=== PATIENT | female | born 2000 | race Two or more races ===

== ENCOUNTER 2024-08-08 00:30 | Emergency (ER) | payer MEDICAID, SELFPAY ==
[2024-08-08] VITALS (8 sets, daily range): BP systolic 93–101; BP diastolic 55–72; PULSE 76–120; RESP 17–18; TEMP 36.6–39.3; O2SAT 98–99; BMI 41.7
--- NOTE | 2024-08-08 00:52 | PD.EDRME ---
Rapid Medical Screening Exam RME Arrival date/time: 08/08/24 00:30 24-year-old female presents emergency department complaint of abdominal cramping. Patient reports currently on monthly. Chief Complaint: Abdominal Pain Time Seen by Provider: 08/08/24 00:48 Vital signs: Vital Signs Temperature 100.7 F H 08/08/24 00:36 Pulse Rate 120 H 08/08/24 00:36 Respiratory Rate 18 08/08/24 00:36 Blood Pressure 93/66 08/08/24 00:36 Pulse Oximetry (%) 98 08/08/24 00:36 Oxygen Delivery Method Room Air 08/08/24 00:36 Vital signs reviewed by provider: Yes
[2024-08-08 01:08] LABS: Basophils % (Auto) 0 % (0-2.5); Eosinophils % (Auto) 0 % (0-10); Hematocrit 35.8 % (36.0-46.0); Hemoglobin 11.2 g/dL (12.0-16.0); Immature Granulocytes % (Auto) 0 % (0-0); Immature Granulocytes Auto 0.09 Thou/mm3 (0.00-0.00); Lymphocytes # (Auto) 1.6 Thou/mm3 (1.0-4.8); Lymphocytes % (Auto) 8 % (10-50); Mean Corpuscular HGB Conc 31.3 g/dl (31.0-37.0); Mean Corpuscular Hemoglobin 24.5 pg (25.0-35.0); Mean Corpuscular Volume 78 fL (80-100); Monocytes # (Auto) 1.4 Thou/mm3 (0.0-0.8); Monocytes % (Auto) 7 % (0-12); Neutrophils # (Auto) 17.3 Thou/mm3 (1.8-7.7); Neutrophils % (Auto) 84 % (37-80); Nucleated Red Blood Cell % 0 /100 WBC (0); Platelet Count 323 Thou/mm3 (140-440); RDW Standard Deviation 46.4 fL (36.4-46.3); Red Blood Count 4.58 Miln/mm3 (4.00-5.20)
[2024-08-08 01:19] LABS: Strep A Rapid Negative (Negative)
[2024-08-08 01:21] LABS: White Blood Count 20.5 Thou/mm3 (3.6-11.0)
[2024-08-08 01:32] LABS: Alanine Aminotransferase 14 U/L (10-49); Albumin, Serum 4.6 gm/dL (3.5-5.0); Albumin/Globulin Ratio 1.7 (1.2-2.2); Alkaline Phosphatase 70 U/L (46-116); Anion Gap 9 (7-16); Aspartate Amino Transferase 14 U/L (0-34); BUN/Creatinine Ratio 14 Ratio (12-20); Bilirubin,Total 0.4 mg/dL (0.3-1.2); Blood Urea Nitrogen 10 mg/dL (9-23); Calcium 9.4 mg/dL (8.3-10.6); Calcium (Corrected) 9.4 mg/dL (8.5-10.1); Carbon Dioxide 23.4 mMol/L (20.0-31.0); Chloride 108 mMol/L (98-107); Creatinine (Component) 0.7 mg/dL (0.6-1.3); Estimated Creatinine Clearance 139.7 mL/min (>60); Globulin 2.7 gm/dL (2.3-3.5); Glucose 117 mg/dL (74-106); Lipase 35 U/L (12-53); Osmolality,Calculated 279 (275-295); Potassium 3.6 mMol/L (3.4-5.1); Sodium 140 mMol/L (136-145); Total Protein 7.3 gm/dL (5.7-8.2); eGFR > 60 See Note
[2024-08-08] MEDS: ACETAMINOPHEN 500 MG TABLET 1000 MG PO (01:32)
[2024-08-08 01:45] LABS: HCG,Qualitative Serum Negative
[2024-08-08 01:51] LABS: Lactate (Lactic Acid) 1.2 mMol/L (0.4-2.0)
[2024-08-08 01:51] LABS: Collection Type, Urine Clean Catch
[2024-08-08 01:57] LABS: Bilirubin,Urine Negative (Negative); Blood,Urine 3+ (Negative); Clarity,Urine Turbid (Clear/Hazy); Color,Urine Yellow (Lt Yel-Yel); Culture Indicated,Urine Yes; Glucose, Urine Negative (Negative); Ketones,Urine Trace (Negative); Leukocyte Esterase,Urine Positive (Negative); Nitrite,Urine Negative (Negative); Protein,Urine 1+ (Neg - Trace); RBC,Urine 2037 /hpf (0-3); Specific Gravity,Urine 1.037 (1.001-1.035); Squamous Epithelial Cell,Urine 7 /hpf (0-5); WBC,Urine 17 /hpf (0-5)
[2024-08-08 02:03] LABS: Amphetamine/Methamp Scrn,U Negative (Negative); Barbiturate Screen,Urine Negative (Negative); Benzodiazepines Screen,Urine Negative (Negative); Benzoylecgonine Screen, Ur Negative (Negative); Fentanyl Screen,Urine Negative (Negative); Opiate Screen,Urine Negative (Negative); THC Screen,Urine Negative (Negative)
[2024-08-08 02:19] LABS: Procalcitonin 0.05 ng/ml (0.0-0.49)
--- NOTE | 2024-08-08 02:43 | XR_ITS ---
Examination: AP chest single view Technique one AP portable upright chest single view Exam date and time: August 08, 2024 0315 hrs. Indications: High fever today. Findings: Normal heart size The lungs are clear. The osseous structures are intact Impression: No active disease
[2024-08-08] MEDS: cefTRIAXone 1,000 MG in SODIUM CHLORIDE 0.9% (P) 50 ML 100 MG IV (03:01)
[2024-08-08] MEDS: SODIUM CHLORIDE 0.9% 1000 ML 1,503 ML 1503 ML IV (03:03)
[2024-08-08 03:06] LABS: INR 1.1 (0.9-1.3); Partial Thromboplastin Time 30.2 Seconds (22.0-36.0); Prothrombin Time 11.9 Seconds (9.0-12.2)
[2024-08-08] MEDS: IBUPROFEN TAB 600 MG TABLET PO (03:09)
--- NOTE | 2024-08-08 03:11 | PD.EDABDPN ---
ED Abdominal Pain RME/HPI General Chief Complaint: Abdominal Pain Stated complaint: ABDOMINAL PAIN Time seen by provider: 08/08/24 00:48 Arrival date/time: 08/08/24 00:30 RME / HPI RME / HPI narrative: 08/08/24 00:30 24-year-old female presents emergency department complaint of abdominal cramping. Patient reports currently on monthly. -------- Dr. Paez?s Main ED Evaluation: 24yo female presents to the ED for multiple complaints. Patient reports having fatigue, a headache, sore throat, nausea, generalized body aches, cold sweating, and chills that started today. She reports associated lower back pain and abdominal cramping, noting she is menstruating. She denies any V/D, cough, dysuria, shortness of breath or any other associated symptoms. Patient denies any sick contacts. Patient states she is currently on antibiotics for Strep. Related Data Home Medications ?Medication ?Instructions ?Recorded ?Confirmed ferrous sulfate 325 mg (65 mg 325 mg PO QDAY 06/30/21 03/21/23 iron) tablet (FeroSul) folic acid 1 mg tablet 1 mg PO QDAY 06/30/21 03/21/23 vits no.130-ferrous fum 1 tab PO QDAY 06/30/21 03/21/23 27 mg iron-folic acid 800 mcg tablet ( Vitamin) dicyclomine 10 mg capsule 10 mg PO PRN PRN (Drug) Ingestion 03/21/23 03/21/23 Previous Rx's ?Medication ?Instructions ?Recorded acetaminophen 500 mg capsule 1,000 mg (2 x 500 mg) PO Q6H PRN 08/08/24 fever or pain 5 days #40 caps ibuprofen 600 mg tablet 600 mg PO Q6H PRN fever or pain 5 08/08/24 days #20 tabs Allergies Allergy/AdvReac Type Severity Reaction Status Date / Time hydrocodone (From [place]) Allergy Severe Hives Verified 03/07/24 10:20 Review of Systems Review of Systems Systems Reviewed: All systems reviewed, normal except as documented Past Medical History Past Medical History NEUROLOGIC: Negative Neurological Disorders CARDIAC: Positive Cardiac Disorders and Congenital Heart Disease; Negative Congestive Heart Failure RESPIRATORY: Negative Chronic Obstructive Pulmonary Disease (COPD) or Asthma GASTROINTESTINAL: Positive Gastrointestinal Disorders, Gall Bladder Disease and Obesity GENITOURINARY: Negative Genitourinary Disorders or Renal Disease REPRODUCTIVE: Positive Previous Pregnancies MUSCULOSKELETAL: Negative Musculoskeletal Disorders ENDOCRINE: Negative Endocrine Disorders, Diabetes Mellitus Type 1 or Diabetes Mellitus Type 2 HEMATOLOGIC: Negative Blood Disorders or Sickle Cell Disease Surgical History SURGICAL: Positive Cardiac Surgery, Open Heart Surgery, Valve Replacement, Vascular Surgery, Coronary Stent, Abdominal Surgery, Gastric Bypass Surgery and Section Social History SMOKING STATUS: Never smoker ED Exam Narrative Physical exam: GENERAL APPEARANCE: alert and oriented x 4, well-developed, well-nourished, no acute distress VITALS: All vitals were reviewed and the pulse ox is 99% on room air, which is normal according to my interpretation. HEENT: Normocephalic, atraumatic; pupils equal, round, reactive to light; EOMI; mucous membranes pink, moist; extensive posterior oropharyngeal injection withe extensive exudates, uvula is midline, no tongue elevation, normal voice NECK: Supple; anterior cervical adenopathy LUNGS: CTABL; no wheezes, no rales, no rhonchi, no stridor HEART: Regular rate, regular rhythm; normal S1, S2; no murmurs ABDOMEN: non distended; normal BS; soft, no tenderness, no guarding, no rebound; no masses, no organomegaly, no hernia BACK: no CVA tenderness EXTREMITIES: atraumatic; no edema NEUROLOGIC: awake; alert and oriented x4; cranial nerves II-XII grossly intact; no focal sensory or motor deficits PSYCHIATRIC: appropriate mood and affect SKIN: warm, dry, normal color; no rashes Course Course Course Narrative: 0223: Sepsis alert initiated. Orders made at this time are congruent with ED Adult Sepsis Order List. Re-evaluation is to be completed. 0303: NS IVF started. 0435: Sepsis reassessment performed consisting of lab review, vitals, physical exam including auscultation of heart, lungs, and visual evaluation of capillary refills, mucosal membranes and extremities. Patient states she feels significantly better. Patient is stable to be discharged home. Her fever has resolved. Quality Measures none Orders Category Date Time Status Bedside Influenza A&B Antigen Test NOW Care 08/08/24 00:51 Completed Weight Control Lecturer STAT Care 08/08/24 02:41 Active Continuous Pulse Oximetry STAT Care 08/08/24 02:41 Completed Insert IV NOW Care 08/08/24 02:41 Active Miscellaneous Nursing Order NOW Care 08/08/24 04:10 Active NPO STAT Care 08/08/24 02:41 Active Strict Intake and Output Routine Care 08/08/24 02:41 Ordered XR chest 1V portable Stat Exams 08/08/24 02:43 Taken Blood Culture (Lab) Stat Lab 08/08/24 02:55 Received CBC Stat Lab 08/08/24 00:55 Completed CMP [Comprehensive Metabolic Panel] Stat Lab 08/08/24 00:55 Completed Drug Screen,Urine Stat Lab 08/08/24 01:30 Completed HCG,Qualitative Serum Stat Lab 08/08/24 00:55 Completed LDH (Lactate Dehydrogenase) Stat Lab 08/08/24 02:55 Completed Lactic Acid [Lactate (Lactic Acid)] Stat Lab 08/08/24 01:46 Completed Lipase Stat Lab 08/08/24 00:55 Completed Magnesium Stat Lab 08/08/24 02:55 Completed Partial Thromboplastin Time Stat Lab 08/08/24 00:55 Completed Phosphorous Stat Lab 08/08/24 02:55 Completed Procalcitonin Stat Lab 08/08/24 01:46 Completed Prothrombin Time with INR Stat Lab 08/08/24 00:55 Completed Strep A Rapid Stat Lab 08/08/24 00:55 Completed Urinalysis, C/S if Indicated Stat Lab 08/08/24 01:30 Completed Urine Culture Stat Lab 08/08/24 01:30 Received Acetaminophen Tab [Tylenol ES Tab] Med 08/08/24 00:53 Discontinued 1,000 mg PO X1 ONE Dexamethasone Inj [Decadron Inj] Med 08/08/24 04:10 Discontinued 10 mg IVP X1 ONE Ibuprofen Tab [Motrin Tab] Med 08/08/24 03:04 Discontinued 600 mg PO X1 ONE Oseltamivir [Tamiflu] Med 08/08/24 04:32 Once 75 mg PO X1 ONE Sodium Chloride 0.9% 1000 ml [Ns] 1,503 ml Med 08/08/24 02:40 Discontinued IV 1,503 mls/hr cefTRIAXone [Rocephin] 1,000 mg Med 08/08/24 02:40 Discontinued Sodium Chloride 0.9% (P) [Ns 0.9% (P)] 50 ml IV X1 Vital Signs Vital signs: Vital Signs Temperature 100.7 F H 08/08/24 00:36 Pulse Rate 120 H 08/08/24 00:36 Respiratory Rate 18 08/08/24 00:36 Blood Pressure 93/66 08/08/24 00:36 Pulse Oximetry (%) 98 08/08/24 00:36 Oxygen Delivery Method Room Air 08/08/24 00:36 Abdominal Pain MDM MDM Narrative MDM Narrative:: Scribe Attestation: 08/08/24 - IJanette am scribing for and in the presence of Dr. Paez. Patient meets 4/4 Centor criteria. She is currently being treated for Strep pharyngitis with azithromax. Patient is stable to be discharged home. Patient data External records reviewed:: [facility] previous records (Per chart review, patient has no relevant previous ED visits.) Clinical information provided by:: patient Social determinants that could affect healthcare access:: none Patient has the following chronic illnesses:: none How is presenting disease/condition affected by chronic disease/condition?: no chronic disease Evaluation data The following diagnostics were reviewed and interpreted by me:: lab results and radiology exam(s) Lab and/or radiology exams considered but not ordered:: none Interpretation Summary: Bedside Influezna is positive, WBC count is elevated at 20.5, CMP is normal, Lactate is normal, Procalcitonin is normal, HCG is negative, UA is negative for UTI, UDS is negative, according to my interpretation. CXR shows normal cardiac silhouette, normal sharp diaphragmatic edge, no infiltrates, normal costophrenic angles, according to my interpretation. Medications / Prescriptions Medications or Prescriptions considered but not ordered:: none Medication administrations:: Medication Administration History Discontinued Medications Acetaminophen (Acetaminophen 500 Mg Tablet) 1,000 mg PO X1 ONE Stop: 08/08/24 00:54 Last Admin: 08/08/24 01:32 Dose: 1,000 mg Documented By: SAMANTHA Dexamethasone Sodium Phosphate (Dexamethasone Sod Phos Inj 4 Mg/Ml Vial) 10 mg IVP X1 ONE; Protocol Stop: 08/08/24 04:11 Last Admin: 08/08/24 04:25 Dose: 10 mg Documented By: EUN Sodium Chloride (Ns) 1,503 mls @ 1,503 mls/hr 30 ml/kg infuse over 60 min (1503 ml) IV .Q1H ONE Stop: 08/08/24 03:39 Last Infusion: 08/08/24 04:05 Dose: Infused Documented By: Admin: 08/08/24 03:03 Dose: 1,503 mls/hr Documented By: EUN Ceftriaxone Sodium 1,000 mg/ (Sodium Chloride) 50 mls @ 100 mls/hr IV X1 ONE Stop: 08/08/24 03:09 Last Infusion: 08/08/24 03:14 Dose: Infused Documented By: Admin: 08/08/24 03:01 Dose: 100 mls/hr Documented By: EUN Ibuprofen (Ibuprofen Tab 600 Mg Tablet) 600 mg PO X1 ONE Stop: 08/08/24 03:05 Last Admin: 08/08/24 03:09 Dose: 600 mg Documented By: EUN see above Consultations Consultation(s) initiated? (list below): No Diagnosis Differential diagnosis abdominal pain: other (Strep phayngitis, mononucleosis, Influenza, COVID, pneumonia) Most likely diagnosis given after review of the tests above:: see below Admission Indicated Admission indicated?: not indicated Admission Request Was there a request for admission?: No Disposition Plan Disposition Plan: Discharge Discharge Attestation Discharge Attestation: The patient and all family members were given an opportunity to ask questions and understood the discharge instructions. Discharge instructions specifically effects, indications for sooner follow up or return to the emergency department, and the expected course of current diagnosis. Patient condition: Stable Discharge Plan Plan Patient Disposition: HOME (Self Care) Disposition Comment: Stable for discharge Patient condition on transfer: Stable Prescriptions/Referrals Prescriptions/Med Rec: New acetaminophen 500 mg capsule 1,000 mg PO Q6H PRN (Reason: fever or pain) 5 Days Qty: 40 0RF ibuprofen 600 mg tablet 600 mg PO Q6H PRN (Reason: fever or pain) 5 Days Qty: 20 0RF No Action ferrous sulfate [FeroSul] 325 mg (65 mg iron) tablet 325 mg PO QDAY Patient Comments: take 1 tablet by mouth once daily folic acid 1 mg tablet 1 mg PO QDAY Patient Comments: take 1 tablet by mouth once daily Vitamin 27 mg iron- 800 mcg tablet 1 tab PO QDAY Patient Comments: take 1 tablet by mouth once daily dicyclomine 10 mg capsule 10 mg PO PRN PRN (Reason: (Drug) Ingestion) Patient Comments: TAKE 1 CAPSULE BY MOUTH 4 TIMES DAILY NEEDED FOR BLOATING ABDOMINAL PAIN Referrals: [facility] [Outside] - In 1 week Problem List Clinical Impression: Influenza A, Strep pharyngitis Patient/Caregiver Discharge Instructions Discharge Activity: activity as tolerated Education Materials: Self-Care for Sore Throats, ED Influenza (Adult), ED Pharyngitis, Strep (Presumed) Additional Instructions: Please return to the emergency department for any worsening or any further medical problems and we will help you. Otherwise you should follow-up with your primary care doctor or in the family [facility] care clinic within the next several days. You have several prescriptions waiting for you at the pharmacy. These are to take care of the symptoms of influenza and strep throat. Please take all medications as directed Print Language: Nepalese Stand Alone Forms: Kay Award Info., Work/School Release, Patient Portal Info Letter
[2024-08-08 03:39] LABS: LDH (Lactate Dehydrogenase) 202 U/L (120-246); Magnesium 1.7 mg/dL (1.6-2.6); Phosphorous 2.3 mg/dL (2.4-5.1)
[2024-08-08] MEDS: DEXAMETHASONE SOD PHOS INJ 4 MG/ML VIAL 10 MG IVP (04:25)
[2024-08-08] MEDS: OSELTAMIVIR 75 MG CAPSULE PO (04:37)
== END 2024-08-08 05:01 | disposition home or self-care (01) ==
LOC: SERX 04:23
PROVIDERS: Emergency Provider Emergency Medicine; PCP Physician Assistant
DX: J10.1 Influenza due to other identified influenza virus with other respiratory manifestations (principal); J02.0 Streptococcal pharyngitis
CPT/HCPCS: 36415; 71045; 80053; 80307; 81001; 83605; 83615; 83690; 83735; 84100; 84145; 84703; 85025; 85610; 85730; 87040; 87086; 87400; 87651; 96361; 96374; 99284; J0696; J1100; J7030; J7050; A9270

== ENCOUNTER 2024-08-14 19:51 | Emergency (ER) | payer MEDICAID, SELFPAY ==
[2024-08-14 19:51] VITALS: BMI 41.7
[2024-08-14 20:07] VITALS: BP 103/66; PULSE 102; RESP 18; TEMP 37.9; O2SAT 98
--- NOTE | 2024-08-14 20:19 | PD.EDRME ---
Rapid Medical Screening Exam RME Arrival date/time: 08/14/24 19:51 24-year-old female presents emergency department complaining of fatigue, headache, and nausea. Patient recently diagnosed with influenza. Chief Complaint: Flu Like Symptoms Time Seen by Provider: 08/14/24 20:16 Vital signs: Vital Signs Temperature 100.2 F 08/14/24 20:07 Pulse Rate 102 H 08/14/24 20:07 Respiratory Rate 18 08/14/24 20:07 Blood Pressure 103/66 08/14/24 20:07 Pulse Oximetry (%) 98 08/14/24 20:07 Oxygen Delivery Method Room Air 08/14/24 20:07 Vital signs reviewed by provider: Yes
--- NOTE | 2024-08-14 20:20 | EKG_ITS ---
[facility] Test Date: 2024-08-14 Pat Name: RENALDO HOFFMAN Department: Room: - Gender: Female Valet Manager: : [id number] Requested By: Leonidas Johnson ([facility]) Order Number: [id number] Reading MD: Leonidas Johnson ([facility]) Measurements Intervals [place] Rate: 99 P: 48 ID: [id number] QRS: 65 QRSD: 93 T: 54 QT: 330 QTc: 423 Interpretive Statements SINUS RHYTHM Compared to ECG 03/07/2024 10:34:57 Sinus bradycardia no longer present /store/S0/[id number].pdf
[2024-08-14 20:30] VITALS: TEMP 37.9
[2024-08-14] MEDS: ACETAMINOPHEN 500 MG TABLET 1000 MG PO (20:30)
[2024-08-14] MEDS: ONDANSETRON ODT 4 MG TABRAP PO (20:31)
--- NOTE | 2024-08-14 20:46 | EDNOTE_ITS ---
Upper Respiratory Inf. RME/HPI General Chief Complaint: Flu Like Symptoms Stated Complaint: FLU LIKE SYMPTOMS Time Seen by Provider: 08/14/24 20:16 Source: patient Arrival date/time: 08/14/24 19:51 Mode of arrival: ambulatory Limitations: no limitations RME / HPI RME / HPI Narrative: 08/14/24 19:51 24-year-old female presents emergency department complaining of fatigue, headache, and nausea. Patient recently diagnosed with influenza. Dr. Paez?s Main ED Evaluation: 24-year-old female accompanied by her significant other who was recently seen in the Emergency Department on 08/08/24, where she tested positive for Influenza A and was subsequently discharged on antibiotics. She reported significant improvement in her symptoms. However, today, she experienced a near-syncopal episode, which she vividly described as my soul leaving my body. Additionally, she reports the onset of throat and ear pain, accompanied by fever and neck discomfort. Despite these symptoms, she denies having a sore throat or cough. She denies any exposure to sick contacts. Related Data Home Medications ?Medication ?Instructions ?Recorded ?Confirmed ferrous sulfate 325 mg (65 mg 325 mg PO QDAY 06/30/21 03/21/23 iron) tablet (FeroSul) folic acid 1 mg tablet 1 mg PO QDAY 06/30/21 vits no.130-ferrous fum 1 tab PO QDAY 2 03/21/23 27 mg iron-folic acid 800 mcg tablet ( Vitamin) dicyclomine 10 mg capsule 10 mg PO PRN PRN (Drug) Radhasilvio garcia 03/21/23 03/21/23 Previous Rx's ?Medication ?Instructions ?Recorded ondansetron 4 mg disintegrating 4 mg PO Q6H PRN nausea and 08/08/24 tablet vomiting #14 tabs Allergies Allergy/AdvReac Type Severity Reaction Status Date / Time hydrocodone (From [place]) Allergy Severe Hives Verified 08/14/24 19:53 Review of Systems Review of Systems Systems Reviewed: All systems reviewed, normal except as documented Past Medical History Past Medical History NEUROLOGIC: Negative Neurological Disorders CARDIAC: Positive Cardiac Disorders and Congenital Heart Disease; Negative Congestive Heart Failure RESPIRATORY: Negative Chronic Obstructive Pulmonary Disease (COPD) or Asthma GASTROINTESTINAL: Positive Gastrointestinal Disorders, Gall Bladder Disease and Obesity GENITOURINARY: Negative Genitourinary Disorders or Renal Disease REPRODUCTIVE: Positive Previous Pregnancies MUSCULOSKELETAL: Negative Musculoskeletal Disorders ENDOCRINE: Negative Endocrine Disorders, Diabetes Mellitus Type 1 or Diabetes Mellitus Type 2 HEMATOLOGIC: Negative Blood Disorders or Sickle Cell Disease Surgical History SURGICAL: Positive Cardiac Surgery, Open Heart Surgery, Valve Replacement, Vascular Surgery, Coronary Stent, Abdominal Surgery, Gastric Bypass Surgery and Section Social History SMOKING STATUS: Never smoker ED Exam Narrative Physical exam: GENERAL APPEARANCE: alert and oriented x 4, well-developed, well-nourished, no acute distress VITALS: All vitals were reviewed and the pulse ox is 98% on room air, which is normal according to my interpretation. HEENT: Normocephalic, atraumatic; pupils equal, round, reactive to light; EOMI; mucous membranes pink, moist; oropharynx exhibits extensive posterior exudates and erythema. The uvula is midline with no palpable deviation. NECK: Supple LUNGS: CTABL; no wheezes, no rales, no rhonchi HEART: Regular rate, regular rhythm; normal S1, S2; no murmurs ABDOMEN: non distended; normal BS; soft, no tenderness, no guarding, no rebound; no masses, no organomegaly, no hernia BACK: no CVA tenderness EXTREMITIES: atraumatic; no edema NEUROLOGIC: awake; alert and oriented x4; cranial nerves II-XII grossly intact; no focal sensory or motor deficits PSYCHIATRIC: appropriate mood and affect SKIN: warm, dry, normal color; no rashes General Limitations: Present no limitations Course Course Course Narrative: CXR is ordered for determining etiology of fever. Quality Measures none Orders Category Date Time Status EKG (ED ONLY) *Do not use* NOW Care 08/14/24 20:20 Completed IV [Insert IV] NOW Care 08/14/24 21:02 Completed EKG (ED Only) Stat Exams 08/14/24 20:20 Draft XR chest 1V portable Stat Exams 08/14/24 20:46 Completed CBC Stat Lab 08/14/24 20:47 Completed CMP [Comprehensive Metabolic Panel] Stat Lab 08/14/24 20:47 Completed HCG Qualitative,Urine Stat Lab 08/14/24 22:25 Completed HCG,Qualitative Serum Stat Lab 08/14/24 20:47 Completed Lipase Stat Lab 08/14/24 20:47 Completed [place] Screen Stat Lab 08/14/24 20:47 Completed Urinalysis, C/S if Indicated Stat Lab 08/14/24 22:25 Completed Acetaminophen Tab [Tylenol ES Tab] Med 08/14/24 20:20 Discontinued 1,000 mg PO X1 ONE Dexamethasone Inj [Decadron Inj] Med 08/14/24 21:01 Discontinued 10 mg PO X1 ONE Ondansetron Odt [Zofran Odt] Med 08/14/24 20:20 Discontinued 4 mg PO X1 ONE Sodium Chloride 0.9% 1000 ml [Ns] 1,000 ml Med 08/14/24 21:02 Discontinued IV 999 mls/hr Reevaluation(s) Reevaluation #1: Patient feels significantly better. She is stable to be discharged home. Time: 23:08 Vital Signs Vital signs: Vital Signs Temperature 100.2 F 08/14/24 20:07 Pulse Rate 102 H 08/14/24 20:07 Respiratory Rate 18 08/14/24 20:07 Blood Pressure 103/66 08/14/24 20:07 Pulse Oximetry (%) 98 08/14/24 20:07 Oxygen Delivery Method Room Air 08/14/24 20:07 Upper Respiratory Infection MDM Narrative MDM Narrative:: Differential diagnoses include viral illness, streptococcal pharyngitis, influenza, COVID-19, and pneumonia. Scribe Attestation: Darlin Arnett am scribing for and in the presence of Dr. Paez. Provider Notation: Although this document has been carefully reviewed, there may still be some phonetic and other typographical errors. These errors are purely grammatical due to imperfections in the software program and should not be construed in any way to compromise the substance of the patient's medical care during this visit. Patient data External records reviewed:: [facility] previous records Clinical information provided by:: patient Social determinants that could affect healthcare access:: none Patient has the following chronic illnesses:: see PMH How is presenting disease/condition affected by chronic disease/condition?: uneffected by Evaluation data The following diagnostics were reviewed and interpreted by me:: lab results, radiology exam(s) and EKG tracing(s) Lab and/or radiology exams considered but not ordered:: na Interpretation Summary: EKG performed at 20:26 shows normal sinus rhythm at a rate of 99 bpm, normal axis, no ectopy, and no signs of acute ischemia, according to my interpretation. CXR shows normal cardiac silhouette, normal sharp diaphragmatic edge, no infiltrates, normal costophrenic angles, according to my interpretation. Medications / Prescriptions Medications or Prescriptions considered but not ordered:: na Medication administrations:: Medication Administration History Discontinued Medications Acetaminophen (Acetaminophen 500 Mg Tablet) 1,000 mg PO X1 ONE Stop: 08/14/24 20:21 Last Admin: 08/14/24 20:30 Dose: 1,000 mg Documented By: AKIRA Dexamethasone Sodium Phosphate (Dexamethasone Sod Phos Inj 10 Mg/Ml Vial) 10 mg PO X1 ONE Stop: 08/14/24 21:02 Last Admin: 08/14/24 21:33 Dose: 10 mg Documented By: AGUSTIN Sodium Chloride (Ns) 1,000 mls @ 999 mls/hr IV .Q1H1M ONE Stop: 08/14/24 22:02 Last Infusion: 08/14/24 22:19 Dose: Infused Documented By: Admin: 08/14/24 21:18 Dose: 999 mls/hr Documented By: AGUSTIN Ondansetron HCl (Ondansetron Odt 4 Mg Tabrap) 4 mg PO X1 ONE; Protocol Stop: 08/14/24 20:21 Last Admin: 08/14/24 20:31 Dose: 4 mg Documented By: AKIRA as above Consultations Consultation(s) initiated? (list below): No Diagnosis Upper Respiratory Differential Diagnosis: other (see narrative) Most likely diagnosis given after review of the tests above:: see clinical impression Admission Indicated Admission indicated?: not indicated Admission Request Was there a request for admission?: No Disposition Plan Disposition Plan: Discharge Discharge Attestation Discharge Attestation: The patient and all family members were given an opportunity to ask questions and understood the discharge instructions. Discharge instructions specifically effects, indications for sooner follow up or return to the emergency department, and the expected course of current diagnosis. Patient condition: Stable Discharge Plan Plan Patient Disposition: HOME (Self Care) Disposition Comment: Stable for discharge Patient condition on transfer: Stable Prescriptions/Referrals Prescriptions/Med Rec: No Action ferrous sulfate [FeroSul] 325 mg (65 mg iron) tablet 325 mg PO QDAY Patient Comments: take 1 tablet by mouth once daily folic acid 1 mg tablet 1 mg PO QDAY Patient Comments: take 1 tablet by mouth once daily Vitamin 27 mg iron- 800 mcg tablet 1 tab PO QDAY Patient Comments: take 1 tablet by mouth once daily dicyclomine 10 mg capsule 10 mg PO PRN PRN (Reason: (Drug) Ingestion) Patient Comments: TAKE 1 CAPSULE BY MOUTH 4 TIMES DAILY NEEDED FOR BLOATING ABDOMINAL PAIN ondansetron 4 mg tablet,disintegrating 4 mg PO Q6H PRN (Reason: nausea and vomiting) Qty: 14 0RF Referrals: Venita Peña PA-C [Primary Care Provider] - In 1 week Problem List Clinical Impression: Influenza A, Strep pharyngitis Patient/Caregiver Discharge Instructions Discharge Activity: activity as tolerated Education Materials: When You Have a Sore Throat, Self-Care for Sore Throats, The Flu (Influenza), ED Influenza (Adult), ED Pharyngitis, Strep (Presumed) Additional Instructions: Please return to the emergency department if you have any worsening or if you are not improving within the next 48 hours and we will help you. Otherwise you should follow-up with your primary care doctor within the next several days Print Language: Vietnamese Stand Alone Forms: Kay Award Info., Work/School Release, Patient Portal Info Letter
--- NOTE | 2024-08-14 20:46 | XR_ITS ---
Examination: AP chest single view Technique one AP portable upright chest single view Exam date and time: August 04, 2024 2134 hours Indications: Fatigue headache nausea, recent diagnosis influenza Findings: Normal heart size Lungs are clear. The osseous structures are intact Impression: No active disease
[2024-08-14 21:06] LABS: Basophils % (Auto) 0 % (0-2.5); Eosinophils % (Auto) 0 % (0-10); Hematocrit 34.4 % (36.0-46.0); Hemoglobin 10.8 g/dL (12.0-16.0); Immature Granulocytes % (Auto) 2 % (0-0); Immature Granulocytes Auto 0.36 Thou/mm3 (0.00-0.00); Lymphocytes # (Auto) 0.7 Thou/mm3 (1.0-4.8); Lymphocytes % (Auto) 3 % (10-50); Mean Corpuscular HGB Conc 31.4 g/dl (31.0-37.0); Mean Corpuscular Hemoglobin 24.4 pg (25.0-35.0); Mean Corpuscular Volume 78 fL (80-100); Monocytes # (Auto) 0.7 Thou/mm3 (0.0-0.8); Monocytes % (Auto) 3 % (0-12); Neutrophils # (Auto) 19.6 Thou/mm3 (1.8-7.7); Neutrophils % (Auto) 91 % (37-80); Nucleated Red Blood Cell % 0 /100 WBC (0); Platelet Count 386 Thou/mm3 (140-440); RDW Standard Deviation 46.3 fL (36.4-46.3); Red Blood Count 4.42 Miln/mm3 (4.00-5.20)
[2024-08-14 21:11] LABS: White Blood Count 21.5 Thou/mm3 (3.6-11.0)
[2024-08-14] MEDS: SODIUM CHLORIDE 0.9% 1000 ML 1,000 ML 999 ML IV (21:18)
[2024-08-14 21:25] LABS: Alanine Aminotransferase 14 U/L (10-49); Albumin, Serum 4.5 gm/dL (3.5-5.0); Albumin/Globulin Ratio 1.6 (1.2-2.2); Alkaline Phosphatase 74 U/L (46-116); Anion Gap 8 (7-16); Aspartate Amino Transferase 13 U/L (0-34); BUN/Creatinine Ratio 14 Ratio (12-20); Bilirubin,Total 0.4 mg/dL (0.3-1.2); Blood Urea Nitrogen 7 mg/dL (9-23); Calcium 9.5 mg/dL (8.3-10.6); Calcium (Corrected) 9.5 mg/dL (8.5-10.1); Carbon Dioxide 23.8 mMol/L (20.0-31.0); Chloride 107 mMol/L (98-107); Creatinine (Component) 0.5 mg/dL (0.6-1.3); Estimated Creatinine Clearance 195.6 mL/min (>60); Globulin 2.9 gm/dL (2.3-3.5); Glucose 102 mg/dL (74-106); Lipase 26 U/L (12-53); Osmolality,Calculated 275 (275-295); Potassium 3.9 mMol/L (3.4-5.1); Sodium 139 mMol/L (136-145); Total Protein 7.4 gm/dL (5.7-8.2); eGFR > 60 See Note
[2024-08-14 21:26] LABS: HCG,Qualitative Serum Negative
[2024-08-14] MEDS: DEXAMETHASONE SOD PHOS INJ 10 MG/ML VIAL PO (21:33)
[2024-08-14 22:45] LABS: Collection Type, Urine Clean Catch
[2024-08-14 22:50] LABS: Bilirubin,Urine Negative (Negative); Blood,Urine Negative (Negative); Clarity,Urine Clear (Clear/Hazy); Color,Urine Colorless (Lt Yel-Yel); Culture Indicated,Urine Not Indicated; Glucose, Urine Negative (Negative); Ketones,Urine 1+ (Negative); Leukocyte Esterase,Urine Negative (Negative); Nitrite,Urine Negative (Negative); PH,Urine 6.5 (5.0-7.0); Protein,Urine Negative (Neg - Trace); RBC,Urine 1 /hpf (0-3); Specific Gravity,Urine 1.008 (1.001-1.035); Squamous Epithelial Cell,Urine < 1 /hpf (0-5); Urobilinogen,Urine Negative mg/dL (0.0-1.0); WBC,Urine < 1 /hpf (0-5)
[2024-08-14 22:52] LABS: HCG Qualitative,Urine Negative
[2024-08-14 22:55] LABS: Mono Screen Negative (Negative)
[2024-08-14 23:07] VITALS: BP 128/74; PULSE 94; RESP 18; TEMP 37.1; O2SAT 100
== END 2024-08-14 23:23 | disposition home or self-care (01) ==
PROVIDERS: Emergency Provider Emergency Medicine; PCP Physician Assistant
DX: J10.1 Influenza due to other identified influenza virus with other respiratory manifestations (principal); J02.0 Streptococcal pharyngitis; Q24.9 Congenital malformation of heart, unspecified
CPT/HCPCS: 36415; 71045; 80053; 81001; 81025; 83690; 84703; 85025; 86308; 93005; 96360; 99284; J1100; J7030; Q0162; A9270

== ENCOUNTER 2025-01-09 22:49 | Emergency (ER) | payer MEDICAID, SELFPAY ==
[2025-01-09 22:50] VITALS: BMI 42.0
[2025-01-09 23:29] VITALS: BP 110/74; PULSE 93; RESP 18; TEMP 36.6; O2SAT 98
[2025-01-10] MEDS: DEXAMETHASONE SOD PHOS INJ 10 MG/ML VIAL PO (00:14)
[2025-01-10 00:21] VITALS: RESP 18
--- NOTE | 2025-01-10 04:26 | PD.EDURI ---
Upper Respiratory Inf. RME/HPI General Chief Complaint: Dental/Oral/Throat Stated Complaint: SORE THROAT Time Seen by Provider: 01/10/25 00:07 Arrival date/time: 01/09/25 22:49 24F with no significant PMH presents to ED with several days of sore throat. Patient denies cough. Patient is already on Augmentin for presumed strep throat. Limitations: no limitations Related Data Home Medications ?Medication ?Instructions ?Recorded ?Confirmed ferrous sulfate 325 mg (65 mg 325 mg PO QDAY 06/30/21 03/21/23 iron) tablet (FeroSul) folic acid 1 mg tablet 1 mg PO QDAY 06/30/21 03/21/23 vits no.130-ferrous fum 1 tab PO QDAY 06/30/21 03/21/23 27 mg iron-folic acid 800 mcg tablet ( Vitamin) dicyclomine 10 mg capsule 10 mg PO PRN PRN (Drug) Ingestion 03/21/23 03/21/23 Previous Rx's ?Medication ?Instructions ?Recorded ondansetron 4 mg disintegrating 4 mg PO Q6H PRN nausea and 08/08/24 tablet vomiting #14 tabs Allergies Allergy/AdvReac Type Severity Reaction Status Date / Time hydrocodone (From [place]) Allergy Severe Hives Verified 08/14/24 19:53 Review of Systems Review of Systems Systems Reviewed: All systems reviewed, normal except as documented Constitutional Constitutional: Reports system reviewed and no additional complaints, except as documented, Denies fever(s) and Denies headache(s) ENT Ears, Nose, Mouth, and Throat: Reports as per HPI, Denies disequilibrium, Denies headache(s) and Reports sore throat Cardiovascular Cardiovascular: Reports system reviewed and no additional complaints, except as documented, Denies chest pain and Denies dyspnea Respiratory Respiratory: Reports system reviewed and no additional complaints, except as documented, Denies cough and Denies dyspnea Gastrointestinal Gastrointestinal: Reports system reviewed and no additional complaints, except as documented, Denies abdominal pain, Denies nausea and Denies vomiting Neurologic Neurologic: Reports system reviewed and no additional complaints, except as documented, Denies confusion, Denies disequilibrium and Denies headache(s) Psychiatric Psychiatric: Denies confusion Past Medical History Past Medical History NEUROLOGIC: Negative Neurological Disorders CARDIAC: Positive Cardiac Disorders and Congenital Heart Disease; Negative Congestive Heart Failure RESPIRATORY: Negative Chronic Obstructive Pulmonary Disease (COPD) or Asthma GASTROINTESTINAL: Positive Gastrointestinal Disorders, Gall Bladder Disease and Obesity GENITOURINARY: Negative Genitourinary Disorders or Renal Disease REPRODUCTIVE: Positive Previous Pregnancies MUSCULOSKELETAL: Negative Musculoskeletal Disorders ENDOCRINE: Negative Endocrine Disorders, Diabetes Mellitus Type 1 or Diabetes Mellitus Type 2 HEMATOLOGIC: Negative Blood Disorders or Sickle Cell Disease Surgical History SURGICAL: Positive Cardiac Surgery, Open Heart Surgery, Valve Replacement, Vascular Surgery, Coronary Stent, Abdominal Surgery, Gastric Bypass Surgery and Section Social History SMOKING STATUS: Never smoker ED Exam General Limitations: Present no limitations General appearance: Present alert and in no apparent distress Head Head exam: Present atraumatic Eye Eye exam: Present normal appearance, PERRL and EOMI ENT ENT exam: Present mucous membranes moist Expanded ENT Exam Throat exam: Present tonsillar erythema and tonsillomegaly; Absent tonsillar exudate, R peritonsillar mass, L peritonsillar mass or muffled voice Neck Neck exam: Present normal inspection, full ROM and trachea midline Chest Chest inspection: Present normal inspection and symmetric chest wall rise Respiratory Respiratory exam: Present normal lung sounds bilaterally Cardiovascular Cardiovascular exam: Present regular rate, normal rhythm and normal heart sounds Abdominal Exam Abdominal exam: Present soft and normal bowel sounds Extremities Exam Extremities exam: Present normal inspection and full ROM Back Exam Back exam: Present normal inspection and full ROM Neurological Exam Neurological exam: Present alert, oriented X3 and CN II-XII intact Psychiatric Psychiatric exam: Present normal affect and normal mood Skin Skin exam: Present warm, dry, intact and normal color Course Quality Measures none Orders Category Date Time Status Dexamethasone Inj [Decadron Inj] Med 01/10/25 00:08 Discontinued 10 mg PO X1 ONE Vital Signs Vital signs: Vital Signs Temperature 98 F 01/09/25 23:29 Pulse Rate 93 01/09/25 23:29 Respiratory Rate 18 01/09/25 23:29 Blood Pressure 110/74 01/09/25 23:29 Pulse Oximetry (%) 98 01/09/25 23:29 Oxygen Delivery Method Room Air 01/09/25 23:29 O2 at 98% on RA and WNLs Upper Respiratory Infection MDM Narrative MDM Narrative:: 24F with no significant PMH presents to ED with several days of sore throat. Patient denies cough. Patient is already on Augmentin for presumed strep throat. Physical exam reveals red and swollen oropharynx. Clear lungs and normal WOB. Patient is afebrile, calm, and alert. Meds and counselor supervisor given. Patient data External records reviewed:: [facility] previous records Clinical information provided by:: patient Social determinants that could affect healthcare access:: none Patient has the following chronic illnesses:: none How is presenting disease/condition affected by chronic disease/condition?: no chronic disease Evaluation data The following diagnostics were reviewed and interpreted by me:: other (specify) (none) Lab and/or radiology exams considered but not ordered:: not ordered Interpretation Summary: n/a Medications / Prescriptions Medications or Prescriptions considered but not ordered:: ordered Medication administrations:: Medication Administration History Discontinued Medications Dexamethasone Sodium Phosphate (Dexamethasone Sod Phos Inj 10 Mg/Ml Vial) 10 mg PO X1 ONE Stop: 01/10/25 00:09 Last Admin: 01/10/25 00:14 Dose: 10 mg Documented By: CVL above Consultations Consultation(s) initiated? (list below): No Diagnosis Upper Respiratory Differential Diagnosis: upper respiratory infection, croup, otitis media, sinusitis, viral infection, bronchitis, influenza and pharyngitis Most likely diagnosis given after review of the tests above:: URI Admission Indicated Admission indicated?: not indicated Admission Request Was there a request for admission?: No Disposition Plan Disposition Plan: Discharge Discharge Attestation Discharge Attestation: The patient and all family members were given an opportunity to ask questions and understood the discharge instructions. Discharge instructions specifically effects, indications for sooner follow up or return to the emergency department, and the expected course of current diagnosis. Patient condition: Stable Discharge Plan Plan Patient Disposition: HOME (Self Care) Discharge Disposition comment: Stable Prescriptions/Referrals Prescriptions/Med Rec: No Action ferrous sulfate [FeroSul] 325 mg (65 mg iron) tablet 325 mg PO QDAY Patient Comments: take 1 tablet by mouth once daily folic acid 1 mg tablet 1 mg PO QDAY Patient Comments: take 1 tablet by mouth once daily Vitamin 27 mg iron- 800 mcg tablet 1 tab PO QDAY Patient Comments: take 1 tablet by mouth once daily dicyclomine 10 mg capsule 10 mg PO PRN PRN (Reason: (Drug) Ingestion) Patient Comments: TAKE 1 CAPSULE BY MOUTH 4 TIMES DAILY NEEDED FOR BLOATING ABDOMINAL PAIN ondansetron 4 mg tablet,disintegrating 4 mg PO Q6H PRN (Reason: nausea and vomiting) Qty: 14 0RF Problem List Clinical Impression: URI (upper respiratory infection) Patient/Caregiver Discharge Instructions Education Materials: ED URI, Viral, No Abx (Adult) Additional Instructions: Please follow-up with PCP within 24-48 hours and return immediately if symptoms worsen. Ibuprofen/Tylenol can be used simultaneously for greater fever/pain control. Benadryl is good for cough, congestion, and sleep. Finish ABX. Print Language: Burundian Stand Alone Forms: Work/School Release, Patient Portal Info Letter PA/CHAYA Supervising Physician PA/CHYAA Supervising Physician: Dr. Shepherd
== END 2025-01-10 00:21 | disposition home or self-care (01) ==
LOC: SERX 01-10 00:29
PROVIDERS: Emergency Provider Emergency Medicine
DX: J06.9 Acute upper respiratory infection, unspecified (principal)
CPT/HCPCS: 99283; J1100

== ENCOUNTER 2025-03-23 23:00 | Emergency (ER) | payer MEDICAID, SELFPAY ==
[2025-03-23 23:02] VITALS: BMI 22.8
[2025-03-23 23:24] VITALS: BP 128/68; PULSE 70; RESP 18; TEMP 36.8; O2SAT 99
--- NOTE | 2025-03-23 23:28 | PD.EDWOUND ---
ED Wound/Laceration-RME/HPI General Chief Complaint: Wound/Laceration Stated Complaint: SMALL LAC TO L INDEX RINGER Time Seen by Provider: 03/23/25 23:26 Arrival date/time: 03/23/25 23:00 24F with no significant PMH presents to ED with L index finger lac after she accidentally cut herself. Patient has had a tetanus shot in the past 5 years. Limitations: no limitations Related Data Home Medications ?Medication ?Instructions ?Recorded ?Confirmed ferrous sulfate 325 mg (65 mg 325 mg PO QDAY 06/30/21 03/21/23 iron) tablet (FeroSul) folic acid 1 mg tablet 1 mg PO QDAY 06/30/21 03/21/23 vits no.130-ferrous fum 1 tab PO QDAY 06/30/21 03/21/23 27 mg iron-folic acid 800 mcg tablet ( Vitamin) dicyclomine 10 mg capsule 10 mg PO PRN PRN (Drug) Ingestion 03/21/23 03/21/23 Previous Rx's ?Medication ?Instructions ?Recorded ondansetron 4 mg disintegrating 4 mg PO Q6H PRN nausea and 08/08/24 tablet vomiting #14 tabs Allergies Allergy/AdvReac Type Severity Reaction Status Date / Time hydrocodone (From [place]) Allergy Severe Hives Verified 03/23/25 23:06 Review of Systems Review of Systems Systems Reviewed: All systems reviewed, normal except as documented Integumentary/Breasts Skin/Breast: Reports as per HPI and Reports skin pain Past Medical History Past Medical History NEUROLOGIC: Negative Neurological Disorders CARDIAC: Positive Cardiac Disorders and Congenital Heart Disease; Negative Congestive Heart Failure RESPIRATORY: Negative Chronic Obstructive Pulmonary Disease (COPD) or Asthma GASTROINTESTINAL: Positive Gastrointestinal Disorders, Gall Bladder Disease and Obesity GENITOURINARY: Negative Genitourinary Disorders or Renal Disease REPRODUCTIVE: Positive Previous Pregnancies MUSCULOSKELETAL: Negative Musculoskeletal Disorders ENDOCRINE: Negative Endocrine Disorders, Diabetes Mellitus Type 1 or Diabetes Mellitus Type 2 HEMATOLOGIC: Negative Blood Disorders or Sickle Cell Disease Surgical History SURGICAL: Positive Cardiac Surgery, Open Heart Surgery, Valve Replacement, Vascular Surgery, Coronary Stent, Abdominal Surgery, Gastric Bypass Surgery and Section Social History SMOKING STATUS: Never smoker ED Exam General Limitations: Present no limitations General appearance: Present alert and in no apparent distress Head Head exam: Present atraumatic Neck Neck exam: Present normal inspection, full ROM and trachea midline Chest Chest inspection: Present normal inspection and symmetric chest wall rise Extremities Exam Extremities exam: Present full ROM Expanded Upper Extremity Exam Hand exam: Present full ROM and laceration (1 cm L index finger) Neurological Exam Neurological exam: Present alert and oriented X3 Psychiatric Psychiatric exam: Present normal affect and normal mood Skin Skin exam: Present warm, dry, intact and normal color Course Quality Measures none Orders Category Date Time Status Set Up Suture Tray STAT Care 03/23/25 23:27 Active Wound Care NOW Care 03/23/25 23:27 Active Vital Signs Vital signs: Vital Signs Temperature 98.2 F 03/23/25 23:24 Pulse Rate 70 03/23/25 23:24 Respiratory Rate 18 03/23/25 23:24 Blood Pressure 128/68 03/23/25 23:24 Pulse Oximetry (%) 99 03/23/25 23:24 Oxygen Delivery Method Room Air 03/23/25 23:24 O2 at 99% on RA and WNLs Wound / Laceration MDM Narrative MDM Narrative:: 24F with no significant PMH presents to ED with L index finger lac after she accidentally cut herself. Patient has had a tetanus shot in the past 5 years. Physical exam reveals 1 cm lac on L index finger. ROM intact. Patient is afebrile, calm, and alert. Wound cleaned/closed with 5 stitches. Given careers counsellor to have them removed in about 10-14 days. Patient data External records reviewed:: [facility] previous records Clinical information provided by:: patient Social determinants that could affect healthcare access:: none Patient has the following chronic illnesses:: none How is presenting disease/condition affected by chronic disease/condition?: no chronic disease Evaluation data The following diagnostics were reviewed and interpreted by me:: other (specify) (none) Lab and/or radiology exams considered but not ordered:: not ordered Interpretation Summary: n/a Medications / Prescriptions Medications or Prescriptions considered but not ordered:: not ordered Medication administrations:: n/a Consultations Consultation(s) initiated? (list below): No Diagnosis Wound Differential Diagnosis: laceration, abrasion and avulsion of skin Most likely diagnosis given after review of the tests above:: laceration Admission Indicated Admission indicated?: not indicated Admission Request Was there a request for admission?: No Disposition Plan Disposition Plan: Discharge Discharge Attestation Discharge Attestation: The patient and all family members were given an opportunity to ask questions and understood the discharge instructions. Discharge instructions specifically effects, indications for sooner follow up or return to the emergency department, and the expected course of current diagnosis. Patient condition: Stable Discharge Plan Plan Patient Disposition: HOME (Self Care) Discharge Disposition comment: Stable Prescriptions/Referrals Prescriptions/Med Rec: No Action ferrous sulfate [FeroSul] 325 mg (65 mg iron) tablet 325 mg PO QDAY Patient Comments: take 1 tablet by mouth once daily folic acid 1 mg tablet 1 mg PO QDAY Patient Comments: take 1 tablet by mouth once daily Vitamin 27 mg iron- 800 mcg tablet 1 tab PO QDAY Patient Comments: take 1 tablet by mouth once daily dicyclomine 10 mg capsule 10 mg PO PRN PRN (Reason: (Drug) Ingestion) Patient Comments: TAKE 1 CAPSULE BY MOUTH 4 TIMES DAILY NEEDED FOR BLOATING ABDOMINAL PAIN ondansetron 4 mg tablet,disintegrating 4 mg PO Q6H PRN (Reason: nausea and vomiting) Qty: 14 0RF Problem List Clinical Impression: Laceration Patient/Caregiver Discharge Instructions Education Materials: ED Laceration, Hand: All Closures Additional Instructions: Please follow-up with PCP within 24-48 hours and return immediately if symptoms worsen. Have stitches removed in about 10-14 days. Print Language: Estonian Stand Alone Forms: Patient Portal Info Letter JUDITH/CHAYA Supervising Physician JUDITH/CHAYA Supervising Physician: Dr. Reyes
== END 2025-03-24 00:11 | disposition home or self-care (01) ==
LOC: SERX 03-24 00:09
PROVIDERS: Emergency Provider Emergency Medicine; PCP Physician Assistant
DX: S61.211A Laceration without foreign body of left index finger without damage to nail, initial encounter (principal); W45.8XXA Other foreign body or object entering through skin, initial encounter
CPT/HCPCS: 12001; 99284

== ENCOUNTER 2025-05-07 19:10 | Emergency (ER) | payer MEDICAID, SELFPAY ==
[2025-05-07 19:12] VITALS: BMI 40.8
--- NOTE | 2025-05-07 21:28 | PC.NURSE ---
PATIENT ELOPED THE ER PER REGISTERED DUE TO NOT WANTING TO WAIT LONGER. PROVIDER NOTIFIED.
== END 2025-05-07 21:30 | disposition left against medical advice (07) ==
PROVIDERS: Emergency Provider Emergency Medicine
DX: Z53.21 Procedure and treatment not carried out due to patient leaving prior to being seen by health care provider (principal)
CPT/HCPCS: 99281

== ENCOUNTER 2025-05-08 09:47 | Emergency (ER) | payer MEDICAID, SELFPAY ==
--- NOTE | 2025-05-08 09:54 | EKG_ITS ---
[facility] Test Date: 2025-05-08 Pat Name: RENALDO HOFFMAN Department: Room: - Gender: Female Education Site Manager: : [id number] Requested By: Delmar Nunez ([email or web address]) Order Number: [id number] Reading MD: Delmar Nunez (PROCESS AREA SUPERVISOR) Measurements Intervals [place] Rate: 59 P: 37 CO: 166 QRS: 56 QRSD: 93 T: 50 QT: 403 QTc: 400 Interpretive Statements SINUS BRADYCARDIA Compared to ECG 08/14/2024 20:26:39 Sinus rhythm no longer present /store/S0/[id number].pdf
--- NOTE | 2025-05-08 09:59 | XR_ITS ---
EXAMINATION: PA lateral chest 2 views TECHNIQUE: Upright PA lateral chest 2 views Date and time: May 08, 2025, 10:46 a.m. INDICATIONS: Chest pain today FINDINGS: Normal heart size The lungs are clear. Osseous structures are intact. IMPRESSION: No active disease
--- NOTE | 2025-05-08 09:59 | PD.EDRME ---
Rapid Medical Screening Exam E Arrival date/time: 05/08/25 09:47 24-year-old female with history of coarctation of the aorta presents to the emergency department today for complaints of chest pain Chief Complaint: Chest Pain Vital signs reviewed by provider: Yes Exam: On exam patient (does not appear ill or toxic Clinical Impression: Labs, imaging, EKG obtained
[2025-05-08 10:04] VITALS: BP 141/80; PULSE 60; RESP 18; TEMP 36.8; O2SAT 98; BMI 49.8
[2025-05-08 10:22] LABS: Basophils # (Auto) 0.0 Thou/mm3 (0.0-0.2); Basophils % (Auto) 1 % (0-2.5); Eosinophils # (Auto) 0.2 Thou/mm3 (0.0-0.5); Eosinophils % (Auto) 3 % (0-10); Hematocrit 34.1 % (36.0-46.0); Hemoglobin 10.5 g/dL (12.0-16.0); Immature Granulocytes Auto 0.01 Thou/mm3 (0.00-0.00); Lymphocytes # (Auto) 1.5 Thou/mm3 (1.0-4.8); Lymphocytes % (Auto) 27 % (10-50); Mean Corpuscular HGB Conc 30.8 g/dl (31.0-37.0); Mean Corpuscular Hemoglobin 23.2 pg (25.0-35.0); Mean Corpuscular Volume 75 fL (80-100); Monocytes # (Auto) 0.3 Thou/mm3 (0.0-0.8); Monocytes % (Auto) 6 % (0-12); Neutrophils # (Auto) 3.7 Thou/mm3 (1.8-7.7); Neutrophils % (Auto) 64 % (37-80); Nucleated Red Blood Cell # 0.00 Thou/mm3 (0.00-0.00); Nucleated Red Blood Cell % 0 /100 WBC (0); Platelet Count 358 Thou/mm3 (140-440); RDW Standard Deviation 45.3 fL (36.4-46.3); Red Blood Count 4.52 Miln/mm3 (4.00-5.20); White Blood Count 5.7 Thou/mm3 (3.6-11.0)
[2025-05-08 10:40] LABS: Alanine Aminotransferase 27 U/L (10-49); Albumin, Serum 5.0 gm/dL (3.5-5.0); Albumin/Globulin Ratio 2.2 (1.2-2.2); Alkaline Phosphatase 72 U/L (46-116); Anion Gap 7 (7-16); Aspartate Amino Transferase 25 U/L (0-34); BUN/Creatinine Ratio 18 Ratio (12-20); Bilirubin,Total 0.5 mg/dL (0.3-1.2); Blood Urea Nitrogen 9 mg/dL (9-23); Calcium 9.2 mg/dL (8.3-10.6); Calcium (Corrected) 9.2 mg/dL (8.5-10.1); Carbon Dioxide 25.8 mMol/L (20.0-31.0); Chloride 106 mMol/L (98-107); Creatinine (Component) 0.5 mg/dL (0.6-1.3); Estimated Creatinine Clearance 267.7 mL/min (>60); Globulin 2.3 gm/dL (2.3-3.5); Glucose 84 mg/dL (74-106); Lipase 29 U/L (12-53); Osmolality,Calculated 275 (275-295); Potassium 4.4 mMol/L (3.4-5.1); Sodium 139 mMol/L (136-145); Total Protein 7.3 gm/dL (5.7-8.2); Troponin I < 0.002 ng/mL (0.0-0.045); eGFR > 60 See Note
[2025-05-08 10:46] LABS: HCG,Qualitative Serum Negative
--- NOTE | 2025-05-08 13:24 | EDNOTE_ITS ---
ED Chest Pain RME/HPI General Chief Complaint: Chest Pain Stated Complaint: sob, lightheaded, chest pain, intermittently x2d Time Seen by Provider: 05/08/25 12:28 Arrival date/time: 05/08/25 09:47 RME / HPI RME / HPI narrative: 05/08/25 09:47 24-year-old female with history of coarctation of the aorta presents to the emergency department today for complaints of chest pain DR. LEAL MAIN ED EVALUATION 24 year old female with history of aortic regurgitation and anemia presents to the ED for evaluation of intermittent substernal chest pain and epigastric abdominal pain beginning 3 days ago. Described as aching in sensation, rating 6/10 in severity. Accompanied by feeling short of breath that was worse yesterday after shouting while working. Denies any back pain. Patient states visit after visit after visit for similar complaints she has yet to find the cause for her symptoms. Denies cough or fevers. Denies nausea, vomiting, diarrhea, constipation. Denies dysuria, urinary frequency and urgency. Exam: On exam patient (does not appear ill or toxic Impression: Labs, imaging, EKG obtained Related Data Home Medications ?Medication ?Instructions ?Recorded ?Confirmed ferrous sulfate 325 mg (65 mg 325 mg PO QDAY 06/30/21 03/21/23 iron) tablet (FeroSul) folic acid 1 mg tablet 1 mg PO QDAY 06/30/21 vits no.130-ferrous fum 1 tab PO QDAY 2 2 03/21/23 27 mg iron-folic acid 800 mcg tablet ( Vitamin) dicyclomine 10 mg capsule 10 mg PO PRN PRN (Drug) Radhasilvio ahujaon 03/21/23 03/21/23 Previous Rx's ?Medication ?Instructions ?Recorded ondansetron 4 mg disintegrating 4 mg PO Q6H PRN nausea and 08/08/24 tablet vomiting #14 tabs Allergies Allergy/AdvReac Type Severity Reaction Status Date / Time hydrocodone (From [place]) Allergy Severe Hives Verified 05/08/25 09:50 Review of Systems Review of Systems Systems Reviewed: All systems reviewed, normal except as documented Past Medical History Past Medical History CARDIAC: Positive Cardiac Disorders and Congenital Heart Disease GASTROINTESTINAL: Positive Gastrointestinal Disorders, Gall Bladder Disease and Obesity REPRODUCTIVE: Positive Previous Pregnancies Surgical History SURGICAL: Positive Cardiac Surgery, Open Heart Surgery, Valve Replacement, Vascular Surgery, Coronary Stent, Abdominal Surgery, Gastric Bypass Surgery and Section Social History SMOKING STATUS: Never smoker ED Exam Narrative Physical exam: GENERAL APPEARANCE:? alert and oriented x 4, well-developed, well-nourished, appears anxious HEENT: normocephalic, atraumatic NECK: supple LUNGS: no respiratory distress, normal effort HEART: good peripheral perfusion ABDOMEN: non distended EXTREMITIES:? atraumatic NEUROLOGIC: awake; alert and oriented x4; cranial nerves II-XII grossly intact PSYCHIATRIC:? Appears anxious SKIN: warm, dry, normal color; no rashes Course Course Course Narrative: Patient remains clinically stable throughout the emergency department visit. We reviewed all the results, analysis, and treatment plans. Patient is amenable to discharge. Strict return precautions were outlined. Quality Measures none Orders Category Date Time Status EKG (ED ONLY) *Do not use* NOW Care 05/08/25 09:54 Completed EKG (ED Only) Stat Exams 05/08/25 09:54 Draft XR chest 2V Stat Exams 05/08/25 09:59 Completed CBC Stat Lab 05/08/25 10:09 Completed Comprehensive Metabolic Panel Stat Lab 05/08/25 10:09 Completed Free T4 (Free Thyroxine) Stat Lab 05/08/25 10:09 Completed HCG,Qualitative Serum Stat Lab 05/08/25 10:09 Completed Lipase Stat Lab 05/08/25 10:09 Completed Thyroid Stimulating Hormone Stat Lab 05/08/25 10:09 Completed Troponin I Stat Lab 05/08/25 10:09 Completed Vital Signs Vital signs: Vital Signs Temperature 98.3 F 05/08/25 10:04 Pulse Rate 60 05/08/25 10:04 Respiratory Rate 18 05/08/25 10:04 Blood Pressure 141/80 H 05/08/25 10:04 Pulse Oximetry (%) 98 05/08/25 10:04 Oxygen Delivery Method Room Air 05/08/25 10:04 Pulse ox is 98% on room air which is adequate. Chest Pain MDM Narrative MDM Narrative:: Sherita Arnett am scribing for and in the presence of Dr. Leal. Patient data External records reviewed:: [facility] previous records Clinical information provided by:: patient Social determinants that could affect healthcare access:: none Patient has the following chronic illnesses:: aortic regurgitation and anemia How is presenting disease/condition affected by chronic disease/condition?: exacerbated by Evaluation data The following diagnostics were reviewed and interpreted by me:: lab results, radiology exam(s) and EKG tracing(s) (EKG @ 10:03 AM. Sinus bradycardia, rate 59, no STEMI. ) Lab and/or radiology exams considered but not ordered:: None Interpretation Summary: Ordering Physician: Enrique LIN),Delmar MONTES Date of Service: 05/08/25 Procedure(s): XR chest 2V Accession Number(s): [id number] cc: Sharon Phillips; Enrique LIN),Delmar MONTES; Edinson Cortes MD~ EXAMINATION: PA lateral chest 2 views TECHNIQUE: Upright PA lateral chest 2 views Date and time: May 08, 2025, 10:46 a.m. INDICATIONS: Chest pain today FINDINGS: Normal heart size The lungs are clear. Osseous structures are intact. IMPRESSION: No active disease Dictated By: Edinson Cortes MD Signed By: <Electronically signed by Edinson Cortes MD in OV> 05/08/25 1121 Medications / Prescriptions Medications or Prescriptions considered but not ordered:: None Medication administrations:: None Consultations Consultation(s) initiated? (list below): No Diagnosis Most likely diagnosis given after review of the tests above:: Chest pain Lightheadedness Admission Indicated Admission indicated?: not indicated Explain why admission is indicated or not indicated:: With no condition needing emergent intervention, there was no indication for admission. Admission Request Was there a request for admission?: No Disposition Plan Disposition Plan: Discharge Discharge Attestation Discharge Attestation: The patient and all family members were given an opportunity to ask questions and understood the discharge instructions. Discharge instructions specifically effects, indications for sooner follow up or return to the emergency department, and the expected course of current diagnosis. Patient condition: Stable Discharge Plan Plan Patient Disposition: HOME (Self Care) Prescriptions/Referrals Prescriptions/Med Rec: No Action ferrous sulfate [FeroSul] 325 mg (65 mg iron) tablet 325 mg PO QDAY Patient Comments: take 1 tablet by mouth once daily folic acid 1 mg tablet 1 mg PO QDAY Patient Comments: take 1 tablet by mouth once daily Vitamin 27 mg iron- 800 mcg tablet 1 tab PO QDAY Patient Comments: take 1 tablet by mouth once daily dicyclomine 10 mg capsule 10 mg PO PRN PRN (Reason: (Drug) Ingestion) Patient Comments: TAKE 1 CAPSULE BY MOUTH 4 TIMES DAILY NEEDED FOR BLOATING ABDOMINAL PAIN ondansetron 4 mg tablet,disintegrating 4 mg PO Q6H PRN (Reason: nausea and vomiting) Qty: 14 0RF Referrals: Sharon Phillips PA-C [Primary Care Provider] - In 1 week Problem List Clinical Impression: Chest pain, Lightheadedness Patient/Caregiver Discharge Instructions Education Materials: ED Chest Pain, Uncertain Cause, ED Dizziness, Uncertain Cause Print Language: Guyanese Stand Alone Forms: Kay Award Info., Work/School Release, Patient Portal Info Letter
[2025-05-08 13:25] VITALS: BP 131/71; PULSE 66; RESP 16; TEMP 36.6; O2SAT 98
[2025-05-08 14:04] LABS: Free T4 (Free Thyroxine) 1.32 ng/dL (0.89-1.76); Thyroid Stimulating Hormone 1.04 uIU/mL (0.55-4.78)
== END 2025-05-08 14:21 | disposition home or self-care (01) ==
PROVIDERS: Nurse Practitioner Primary Care; Emergency Provider Emergency Medicine; PCP Physician Assistant
DX: R07.2 Precordial pain (principal); R42 Dizziness and giddiness; Q25.1 Coarctation of aorta; I35.1 Nonrheumatic aortic (valve) insufficiency
CPT/HCPCS: 36415; 71046; 80053; 83690; 84439; 84443; 84484; 84703; 85025; 93005; 99283